=== PATIENT | male | born 1960 | race Caucasian/White ===

== ENCOUNTER 2022-12-12 12:31 | Day surgery (SDC) | payer OTHER, MEDICAID ==
[~2022-12-12] VITALS: Ht 152.4 cm; Wt 81.6 kg
[~2022-12-12 12:31] MED LIST: CEFAZOLIN SOD 2 GM in D5W 50 ML IV ONE
[2022-12-12] MEDS ORDERED: LR 1,000 ML IV.SOLN IV ONE (13:34)
[2022-12-12] MEDS ORDERED: ONDANSETRON HCL 4 MG/2 ML VIAL ONE (13:34)
[2022-12-12] MEDS ORDERED: BUPIVACAINE /PF 0.25% 30 ML VIAL INJ ONE (13:34)
[2022-12-12] MEDS ORDERED: MIDAZOLAM HCL 5 MG/5 ML VIAL ONE (13:34)
[2022-12-12] MEDS ORDERED: PROPOFOL 200MG/ 20ML VIAL (DIPRIVAN) IV ONE (13:34)
[2022-12-12] MEDS ORDERED: METOCLOPRAMIDE HCL 10 MG/2 ML VIAL ONE (13:34)
[2022-12-12] MEDS ORDERED: GLYCOPYRROLATE 0.2 MG/ML VIAL ONE (13:34)
[2022-12-12] MEDS ORDERED: DEXAMETHASONE SOD PHOSPHATE 4 MG/ML VIAL ONE (13:34)
[2022-12-12] MEDS ORDERED: ROCURONIUM BROMIDE 10 MG/ML (ZEMURON) ONE (13:34)
[2022-12-12] MEDS ORDERED: SEVOFLURANE 15 MIN GAS INH ONE (13:34)
[2022-12-12] MEDS ORDERED: fentaNYL CITRATE/PF 100 MCG/2 ML AMP ONE (13:34)
[2022-12-12] MEDS ORDERED: NS IRRIG SOLN 1000 ML IR ONE (13:34)
[2022-12-12] MEDS ORDERED: NS 1000 ML IV.SOLN IV ONE (13:34)
[2022-12-12 13:40] VITALS: O2SAT 95
[2022-12-12] MEDS ORDERED: ONDANSETRON HCL 4 MG/2 ML VIAL IVP PRN (14:30)
[2022-12-12] MEDS ORDERED: KETOROLAC TROMETHAMINE 30 MG VIAL IVP PRN (14:30)
[2022-12-12] MEDS ORDERED: HYDROmorphone 1 MG/ML INJ. CARTRIDGE IVP PRN (14:30)
[2022-12-12] MEDS ORDERED: NALOXONE HCL 0.4 MG/ML AMP (NARCAN) IVP PRN (14:30)
[2022-12-12] MEDS ORDERED: LR 1,000 ML IV SCH (14:30)
[2022-12-12] MEDS ORDERED: MEPERIDINE HCL/PF 25 MG/ML DISP.SYRIN IVP PRN (14:30)
[2022-12-12] MEDS ORDERED: HYDROcodone/ACETAMIN 5-325 MG TAB (NORCO/ VICODIN) PO PRN ×2 (15:00)
[2022-12-12] MEDS ORDERED: D5/0.45 NS 1,000 ML IV SCH (16:00)
[2022-12-12 18:43] VITALS: BP_SYST 133; PULSE 111; RESP 17
== END 2022-12-12 17:25 | disposition home or self-care (01) ==
LOC: SDS 12:31 → SMU 12:34 → SDS 17:25
PROVIDERS: ATTEND Colon & Rectal Surgery
DX: R10.11 Right upper quadrant pain (principal); K66.0 Peritoneal adhesions (postprocedural) (postinfection); K43.9 Ventral hernia without obstruction or gangrene; Z90.49 Acquired absence of other specified parts of digestive tract; Z80.3 Family history of malignant neoplasm of breast; E66.01 Morbid (severe) obesity due to excess calories; Z68.35 Body mass index [BMI] 35.0-35.9, adult
CPT/HCPCS: 87081; 49320; J3490 ×2; J0690; J1100; J2765; J2250; J2405; J2704; J3010; J7060; J7120; J7030; C1727